=== PATIENT | male | born 1980 | race African-American/Black ===

== ENCOUNTER 2018-11-09 15:28 | Emergency (ER) | payer SELFPAY ==
[~2018-11-09] VITALS: Ht 190.5 cm; Wt 86.2 kg
[2018-11-09 15:22] VITALS: BP 108/68
[~2018-11-09 15:28] MED LIST: UNOBMED
--- NOTE | 2018-11-09 15:28 | NUR ---
ED Nurse Note: KB=[id number] per EMs report.
--- NOTE | 2018-11-09 15:38 | NUR ---
ED Nurse Note: pt brought in by [facility] from [employer], per EMS report, the [employer] [facility] staff try to wake him up but he wouldn't wake up. noted pt able to ambulate to bed on his own. when asking questions, pt is refusing to talk, yelling and displaying combative behavior. noted pt has knife and razor blades, security called and sent the belongings with security for safety and precaution. ermd aware of pt's condition. will cont monitor.
--- NOTE | 2018-11-09 15:38 | Emergency Room Report ---
History of Present Illness General Chief Complaint: Altered Level of Consciousness Source: Patient Present Illness HPI Patient is a 38-year-old male brought in by EMS after increased altered level of consciousness. Patient was found sleeping in a [facility] he was unable to be. Woken up by staff there. Paramedics were contacted. Patient was noted to have adequate blood sugar. He had been given Narcan by EMS without any change in respiration or mental status. Patient was noted to be somewhat awake. patient was able to state his name Brady. When asked his last name he stated "I ain't got one". Allergies: Coded Allergies: UNABLE TO ASSESS (Unverified , 11/09/18) Patient History Past Medical History: see triage record, unable to obtain Past Surgical History: unable to obtain Reviewed Nursing Documentation: PMH: Agreed; PSxH: Agreed Review of Systems All Other Systems: limited - poor cooperation Physical Exam Vital Signs Date Time Temp Pulse Resp B/P (MAP) Pulse Ox O2 Delivery O2 Flow Rate FiO2 11/09/18 15:22 11/09/18 15:22 71 16 108/68 (81) 96 Room Air Sp02 EP Interpretation: reviewed, normal General Appearance: normal inspection, well appearing, no apparent distress, alert Head: atraumatic ENT: normal ENT inspection, hearing grossly normal, normal voice Neck: normal inspection, full range of motion, supple, no bony tend Respiratory: normal inspection, lungs clear, normal breath sounds, no respiratory distress, no retraction, no wheezing Cardiovascular #1: regular rate, rhythm, no edema Gastrointestinal: normal inspection, normal bowel sounds, non tender, soft, no guarding, no hernia Genitourinary: no CVA tenderness Musculoskeletal: normal inspection, back normal, normal range of motion Neurologic: normal inspection, alert, responsive, speech normal Psychiatric: other - poorly cooperated Medical Decision Making Diagnostic Impression: Primary Impression: Encounter for medical screening examination ER Course Patient presented for possible altered level of consciousness. Differential diagnosis include was not limited to malingering, psychosis, overdose among others. Patient has a benign exam and does not appear to require any imaging or laboratory testing at this time. Patient was noted to have been awake and poorly cooperative during emergency department stay. Patient was observed in the emergency department without any changes in mental status. Patient continued to be uncooperative and would not provide his name. Patient appears to be in no apparent distress. He appears to be stable for discharge however will not provide information. Patient was discharged home. He is to follow-up with his primary care physician as needed. Last Vital Signs Date Time Temp Pulse Resp B/P (MAP) Pulse Ox O2 Delivery O2 Flow Rate FiO2 11/09/18 15:22 97.3 71 16 108/68 (81) 96 Room Air Status: improved Disposition: HOME, SELF-CARE Condition: Stable Ariel Saxena MD Nov 09, 2018 15:38
--- NOTE | 2018-11-09 15:40 | NUR ---
ED Nurse Note: unable to take vital sign nor assess pt due to pt being combative and refusing care
--- NOTE | 2018-11-09 18:30 | NUR ---
ED Nurse Note: PT REFUSE TO PROVIDE NAME, REFUSE TO PROVIDE ADDRESS, REFUSE V/S AND CARE. PT REFUSE TO SIGN PAPERWORK.
--- NOTE | 2018-11-09 18:30 | NUR ---
ED Nurse Note: PT CLEARED TO BE D/C PER ERMD, PT DEMONSTRATING COMBATIVE BEHAVIORS, POINTING FINGERS AND YELLING, CURSING, SECURITY NOTIFIED AND ESCORTED PT OUT.
== END 2018-11-09 18:30 | disposition home or self-care (01) ==
LOC: EDBD 15:28 → EMR 16:00
DX: R41.82 Altered mental status, unspecified (principal)
CPT/HCPCS: 99283